=== PATIENT | male | born 1955 | race Caucasian/White ===

== ENCOUNTER 2018-06-26 04:14 | Inpatient (IN) | payer MEDICARE, OTHER ==
[2018-06-26] MEDS ORDERED: methylPREDNISolone Sod Succ/PF 125 MG/2 ML VIAL ONE (04:20)
[2018-06-26 04:42] LABS: #Basophils 0.2 thou/uL (0.0-0.2); #Eosinphils 0.8 thou/uL (0.0-0.7); #Lymphocytes 1.5 thou/uL (1.20-3.40); #Monocytes 1.3 thou/uL (0.11-0.59); #Neutrophils 9.4 thou/uL (1.40-6.50); %Basophils 1.2 % (0.0-1.0); %Eosinophils 6.2 % (0.0-10.0); %Lymphocytes 11.5 % (21.0-51.0); %Monocytes 9.6 % (0.0-10.0); %Neutrophils 71.5 % (42.0-75.0); Hemoglobin 14.3 g/dL (14.0-18.0); Mean Corpuscular HGB CONC 33.3 g/dL (32.0-36.0); Mean Corpuscular Hemoglobin 27.8 pg (27.0-31.0); Mean Corpuscular Volume 83.3 fL (78.0-98.0); Mean Platelet Volume 6.8 fL (7.4-10.4); Platelet Count 335 thou/uL (130-400); RBC Distribution Width 13.1 % (11.5-14.5); Red Blood Cell (RBC) Count 5.13 mill/uL (4.70-6.10); White Blood Cell (WBC) Count 13.2 thou/uL (4.8-10.8)
[2018-06-26 05:00] LABS: ALT (SGPT) 24 U/L (8-55); AST (SGOT) 26 U/L (5-34); Albumin 3.9 g/dL (3.4-4.8); Alkaline Phosphatase 107 U/L (40-150); Anion Gap 13 mmol/L (10-20); BUN (Urea Nitrogen) 14 mg/dL (8.4-25.7); Bilirubin, Total 0.3 mg/dL (0.2-1.2); Calc. Creatinine Clearance 0 mL/min (70-130); Calcium 9.2 mg/dL (7.8-10.44); Carbon Dioxide 27 mmol/L (23-31); Chloride 103 mmol/L (98-107); Estimated GFR-MDRD Greater than 90; Globulin 3.7 g/dL (2.4-3.5); Glucose 109 mg/dL (80-115); Potassium 3.8 mmol/L (3.5-5.1); Protein, Total 7.6 g/dL (5.8-8.1); Sodium 139 mmol/L (136-145)
[2018-06-26] MEDS ORDERED: cefTRIAXone\\ROCEPHIN 1 GM VIAL ONE (05:10)
--- NOTE | 2018-06-26 07:42 | RAD ---
PORTABLE CHEST: Date: 06/26/18 An AP portable film at 0401 hours is compared with the 03/22/07 study. FINDINGS: The heart is normal in size. There is no congestive change, pleural effusion, or lobar consolidation. Some of the basilar lung markings are minimally prominent, but this may just be atelectasis. Mediast inum unremarkable. IMPRESSION: No acute thoracic findings. POS: HOME
--- NOTE | 2018-06-26 08:44 | CT ---
PRELIMINARY REPORT/[facility]/EMERGENTY AFTER-HOURS PROCEDURE CT Angiography Chest With Contrast EXAM DATE/TIME: 06/26/2018 5:19 AM CLINICAL HISTORY: 62 years old, male; Abnormal findings; Abnormal diagnostic tests; Elevated d-dimer; Patient HX: SHORT NESS OF BREATH TECHNIQUE: Axial computed tomographic angiography images of the chest with intravenous contrast using CT angiogr aphy protocol. All CT scans at this facility use at least one of these dose optimization techniques: automated expos ure control; mA and/or kV adjustment per patient size (includes targeted exams where dose is matched to clinical indication); or iterative reconstruction. MIP reconstructed images were created and reviewed. COMPARISON: No relevant prior studies available. FINDINGS: Limitations: There is respiratory motion artifact. Pulmonary arteries: There is no evidence of peripheral filling defects within the pulmonary arterial circulation to suggest pulmonary embolism. Aorta: Normal. No aortic aneurysm. No aortic dissection. Lungs: There is nonspecific atelectasis/consolidation of the medial LEFT lower lobe. Pleural space: Normal. No pneumothorax. No pleural effusion. Heart: Normal. No cardiomegaly. No pericardial effusion. Lymph nodes: There are innumerable mildly prominent mediastinal lymph nodes within the RIGHT and LEFT paratracheal stations and subcarinal station, majority of which are subcentimeter however there is a 1.2 cm RIGHT paratracheal lymph node (series 2, image 38). Bones/joints: Unremarkable. No acute fracture. Soft tissues: Unremarkable. IMPRESSION: 1. There is no CT evidence of acute pulmonary embolism. 2. Nonspecific consolidation in the medial aspect of the LEFT lower lobe; correlate for pneumonia. 3. Nonspecific mediastinal lymphadenopathy, probably but not definitely reactive. Thank you for allowing us to participate in the care of your patient. Dictated and Authenticated by: Ananda Guillen MD 06/26/2018 6:40 AM Central Time ([place] & [place]) FINAL REPORT CT ANGIO CHEST: 06/26/2018 HISTORY/TECHNIQUE: A spiral CT of the chest was done for difficulty breathing. Axial slices were acquired after a bolus of IV contrast, and then oblique coronal reformations were done through the pulmonary arteries. FINDINGS: There are no filling defects in the pulmonary arteries to suggest emboli. Very small peripheral embo li would be missed on this study. The aorta shows no aneurysm or dissection. There is no pericardia l effusion. There are some small nodes scattered throughout the mediastinum. All are under 1.5 cm i n size, the largest being about 1.2 cm. These are more likely reactive nodes than not. There is no major consolidation in the lungs; however, there is a very small infiltrate in the medial left lower lobe, as well as some dependent atelectasis. This could be an early consolidation of pne umonia or could just be more atelectasis. There is a small similar peripheral area in the anterior r ight middle lobe. There is no way to tell if this is a chronic finding or acute. Scans into the upper abdomen were significant, showing a 4.4 cm left adrenal mass, which partially en hances with contrast and is mixed density. Its margins are quite smooth. Looking back at a [facility] 2006 CT, I see the mass was there, in retrospect, and measured about 3.4 cm. Thus, it has grown by about 1 cm over a 10+ year period. This implies it is most likely benign, but it would be prudent t o follow it up with a dedicated adrenal scan and consideration if anything further need be done. The right adrenal gland appears normal. IMPRESSION: 1. No evidence of pulmonary embolism. 2. Basilar atelectasis and some more focal infiltration in the medial left lower lobe; pneumonia sravan anthony atelectasis. The area is quite small and could even be chronic. 3. A 4.4 cm left adrenal mass, mixed density. This was present in 2006 and has grown about 1 cm in the interval. See discussion above and consider followup. Report in agreement with preliminary reading by [facility], except there was not mention of the adrenal les ion. A temporary report mentioning it was taken to the ER at approximately 0655 on 06/26/2018. CODE CR POS: HOME
[2018-06-26] MEDS ORDERED: Albuterol Sulfate 2.5 mg/3 ml Neb NEB PRN (10:33)
[2018-06-26] MEDS ORDERED: traMADol HCl 50 MG TAB PO PRN (11:36)
[2018-06-26] MEDS ORDERED: tiZANidine HCl 4 MG TAB PO PRN (11:36)
[2018-06-26] MEDS: methylPREDNISolone Sod Succ/PF 125 MG/2 ML VIAL IVP SCH ×3 (11:58→23:54)
[2018-06-26] MEDS: traMADol HCl 50 MG TAB PO PRN (12:40)
[2018-06-26] MEDS: Gabapentin 300 MG CAP PO SCH ×2 (15:02→20:48)
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
[2018-06-26] MEDS: Enoxaparin Sodium 40 MG/0.4 ML SYRINGE SC SCH (20:47)
[2018-06-26] MEDS: Famotidine 20 MG TAB PO SCH (20:48)
[2018-06-26] MEDS: Pregabalin 50 MG CAP PO SCH (20:48)
[2018-06-26] MEDS: Atorvastatin Calcium 10 MG TAB PO SCH (20:49)
[2018-06-27 02:29] VITALS: BMI 28.8
[2018-06-27] MEDS: cefTRIAXone\\ROCEPHIN 1 GM in Sodium Chloride 0.9% 100 ML IVPB SCH (04:29)
[2018-06-27 04:34] LABS: Anion Gap 13 mmol/L (10-20)
[2018-06-27] MEDS: methylPREDNISolone Sod Succ/PF 125 MG/2 ML VIAL IVP SCH ×3 (05:00→17:41)
[2018-06-27 05:13] LABS: ALT (SGPT) 21 U/L (8-55); AST (SGOT) 18 U/L (5-34); Albumin 3.6 g/dL (3.4-4.8); Alkaline Phosphatase 87 U/L (40-150); BUN (Urea Nitrogen) 18 mg/dL (8.4-25.7); Bilirubin, Total Less than 0.2 mg/dL (0.2-1.2); Calc. Creatinine Clearance 115 mL/min (70-130); Calcium 9.3 mg/dL (7.8-10.44); Carbon Dioxide 25 mmol/L (23-31); Chloride 103 mmol/L (98-107); Estimated GFR-MDRD 89; Globulin 3.5 g/dL (2.4-3.5); Glucose 191 mg/dL (80-115); Potassium 3.7 mmol/L (3.5-5.1); Protein, Total 7.1 g/dL (5.8-8.1); Sodium 138 mmol/L (136-145)
[2018-06-27 05:20] LABS: Band 14 % (5-11); Hemoglobin 13.5 g/dL (14.0-18.0); Lymphocytes 6 % (21-51); MDiff Complete? YES; Mean Corpuscular HGB CONC 34.5 g/dL (32.0-36.0); Mean Corpuscular Hemoglobin 28.7 pg (27.0-31.0); Mean Corpuscular Volume 83.3 fL (78.0-98.0); Mean Platelet Volume 6.5 fL (7.4-10.4); Monocytes 3 % (0-10); Neutrophil 77 % (42-75); PLT Morphology Comment Appears Adequate; Platelet Count 304 thou/uL (130-400); RBC Morphology Normal; Red Blood Cell (RBC) Count 4.71 mill/uL (4.70-6.10); Small Platelets SLIGHT; Toxic Granulation SLIGHT; White Blood Cell (WBC) Count 21.9 thou/uL (4.8-10.8)
[2018-06-27] MEDS: Gabapentin 300 MG CAP PO SCH ×3 (08:47→21:10)
[2018-06-27] MEDS: Citalopram 20 MG TAB PO SCH (08:47)
[2018-06-27] MEDS: Pregabalin 50 MG CAP PO SCH ×2 (08:48→21:10)
[2018-06-27] MEDS: Lisinopril 5 MG TAB PO SCH (08:49)
[2018-06-27] MEDS: Famotidine 20 MG TAB PO SCH ×2 (08:49→21:09)
[2018-06-27] MEDS: traMADol HCl 50 MG TAB PO PRN (17:48)
[2018-06-27] MEDS: Atorvastatin Calcium 10 MG TAB PO SCH (21:12)
[2018-06-27] MEDS: Enoxaparin Sodium 40 MG/0.4 ML SYRINGE SC SCH (21:12)
[2018-06-28] MEDS: methylPREDNISolone Sod Succ/PF 125 MG/2 ML VIAL IVP SCH ×2 (00:46→05:35)
[2018-06-28 04:23] VITALS: TEMP 97.8
[2018-06-28 05:32] LABS: #Basophils 0.1 thou/uL (0.0-0.2); #Lymphocytes 1.1 thou/uL (1.20-3.40); #Monocytes 0.9 thou/uL (0.11-0.59); #Neutrophils 19.4 thou/uL (1.40-6.50); %Basophils 0.3 % (0.0-1.0); %Lymphocytes 5.3 % (21.0-51.0); %Monocytes 4.1 % (0.0-10.0); %Neutrophils 90.4 % (42.0-75.0); Mean Corpuscular HGB CONC 34.2 g/dL (32.0-36.0); Mean Corpuscular Hemoglobin 28.6 pg (27.0-31.0); Mean Corpuscular Volume 83.8 fL (78.0-98.0); Mean Platelet Volume 7.1 fL (7.4-10.4); Platelet Count 354 thou/uL (130-400); RBC Distribution Width 13.1 % (11.5-14.5); Red Blood Cell (RBC) Count 4.53 mill/uL (4.70-6.10); White Blood Cell (WBC) Count 21.5 thou/uL (4.8-10.8)
[2018-06-28] MEDS: traMADol HCl 50 MG TAB PO PRN (05:32)
[2018-06-28] MEDS: cefTRIAXone\\ROCEPHIN 1 GM in Sodium Chloride 0.9% 100 ML IVPB SCH (05:35)
[2018-06-28 05:40] LABS: Anion Gap 14 mmol/L (10-20); BUN (Urea Nitrogen) 25 mg/dL (8.4-25.7); Calc. Creatinine Clearance 124 mL/min (70-130); Calcium 8.9 mg/dL (7.8-10.44); Carbon Dioxide 26 mmol/L (23-31); Chloride 102 mmol/L (98-107); Estimated GFR-MDRD Greater than 90; Glucose 120 mg/dL (80-115); Potassium 3.6 mmol/L (3.5-5.1); Sodium 138 mmol/L (136-145)
--- NOTE | 2018-06-28 07:30 | RAD ---
CHEST 2 VIEWS: Date: 06/28/18 Comparison made with the 06/26/18 study. The cardiac size is the same. The vessels are not congested. There are no pleural effusions. As befor e, there is a little more coarsening to the basilar lung markings. There is some increased density be hind the heart on the lateral view, indicating some basilar infiltration. Overall, the appearance of the chest is no worse than the prior exam. If anything, the right base may be slightly clearer. IMPRESSION: Similar to 06/26/18 study. Perhaps minimal clearing in the lung base, particularly on the right. POS: HOME
[2018-06-28] MEDS: Gabapentin 300 MG CAP PO SCH (09:11)
[2018-06-28] MEDS: Famotidine 20 MG TAB PO SCH (09:11)
[2018-06-28] MEDS: Citalopram 20 MG TAB PO SCH (09:11)
[2018-06-28] MEDS: Lisinopril 5 MG TAB PO SCH (09:11)
[2018-06-28] MEDS: Pregabalin 50 MG CAP PO SCH (09:12)
[2018-06-28 09:14] VITALS: BP 123/63
--- NOTE | 2018-06-29 05:39 | DIS ---
DATE OF ADMISSION: 06/26/2018 DATE OF DISCHARGE: 06/28/2018 ADMISSION DIAGNOSES: Left lower lobe community-acquired pneumonia and chronic obstructive pulmonary disease exacerbation. SECONDARY DIAGNOSES: Hypertension, dyslipidemia, neuropathy, history of traumatic brain injury, history of left [id number] amputation with gait instability, anxiety/depression, and left adrenal mass. PROCEDURES: 06/26/2018, chest x-ray shows no acute thoracic findings. 2017, chest CTA and shows no evidence of pulmonary embolism, basilar atelectasis and some more focal infiltration in the medial left lower lobe, pneumonia versus atelectasis. The area is quite swollen and could even be chronic. A 4.4 cm left adrenal mass mixed density. This was present in 2007 and has grown about 1 cm in interval. 06/28/2018, chest x-ray shows similar to 06/26/2018 study, perhaps minimal clearing in the lung bases, particularly on the right. HOSPITAL COURSE: A 62-year-old male, chronic smoker, who presented to the [facility] Emergency Department with worsening upper respiratory symptoms after failing outpatient therapy with p.o. azithromycin; notably having tachypnea and hypoxia. Repeat lab work revealed leukocytosis with an elevated D-dimer. Thus , a CTA of the chest was performed, which effectively ruled out pulmonary emboli. Due to his failed improvement from an outpatient perspective and respiratory compromise, he was admitted and started on empiric therapy with IV Rocephin and Levaquin along with scheduled nebs and IV Solu-Medrol. He was provided supplemental oxygen, which was effectively weaned back to room air. The patient's labs were trended and he did have a consistent leukocytosis, which was likely worsened from the IV Solu- Medrol. He clinically improved back to his respiratory baseline status; and as noted, he is back to room air. He is ambulatory with the assistance of his rolling walker without becoming tachypneic or dyspneic. He is amenable to discharge to his home setting to complete a course of p.o. antibiotics and steroids. He has been counseled on smoking cessation. His current rolling walker is partially broken and thus a written prescription was done for him to obtain a new rolling walker. As far as the left adrenal mass found incidentally, this has remained largely unchanged over the last 10 years, but as discussed with the patient, we will pursue a dedicated adrenal protocol imaging study as an outpatient. DISPOSITION: The patient will discharge home and may follow up with myself in the clinic next week. DISCHARGE MEDICATIONS: Include atorvastatin 10 mg p.o. at bedtime, Celexa 60 mg p.o. daily, gabapentin 600 mg p.o. t.i.d., Levaquin 500 mg p.o. daily x7 days, lisinopril 5 mg p.o. daily, prednisone 20 mg 2 tabs x3 days followed by 1 tab x3 days, Lyrica 100 mg p.o. b.i.d., tizanidine 4 mg p.o. t.i.d. p.r.n., and tramadol 50-100 mg p.o. t.i.d. p.r.n. Job ID: [id number] [facility]
== END 2018-06-28 10:45 | disposition home or self-care (01) | DRG 190 ==
LOC: BURERS 04:14 → BURMED 07:00
PROVIDERS: ADMIT Family Medicine; ATTEND Family Medicine
DX: J44.1 Chronic obstructive pulmonary disease with (acute) exacerbation (principal); J18.9 Pneumonia, unspecified organism; J44.0 Chronic obstructive pulmonary disease with (acute) lower respiratory infection; F32.9 Major depressive disorder, single episode, unspecified; E78.5 Hyperlipidemia, unspecified; I10 Essential (primary) hypertension; G62.9 Polyneuropathy, unspecified; F41.9 Anxiety disorder, unspecified; F17.200 Nicotine dependence, unspecified, uncomplicated; R09.02 Hypoxemia; E66.3 Overweight; Z68.28 Body mass index [BMI] 28.0-28.9, adult; R26.9 Unspecified abnormalities of gait and mobility; I25.10 Atherosclerotic heart disease of native coronary artery without angina pectoris; E27.9 Disorder of adrenal gland, unspecified; Z89.612 Acquired absence of left leg above knee; Z79.82 Long term (current) use of aspirin; Z88.5 Allergy status to narcotic agent; Z90.89 Acquired absence of other organs; Z98.890 Other specified postprocedural states; Z98.49 Cataract extraction status, unspecified eye; Z87.820 Personal history of traumatic brain injury; Z89.411 Acquired absence of right great toe; Z79.899 Other long term (current) drug therapy
CPT/HCPCS: 36415; 71045; 71046; 71275; 80048; 80053; 83605; 83880; 84484; 85025; 85379; 87040; 87804; 93005; 94640; 94644; 94760; 96365; 96375; J0696; J1650; J1956; J2930; J7050; J7620

== ENCOUNTER 2021-01-28 14:24 | Outpatient (CLI) | payer MEDICARE | END 2021-01-28 14:25 | disposition home or self-care (01) | LOC: BURRAD 14:24 | PROVIDERS: ATTEND Family Medicine | DX: M25.511 Pain in right shoulder (principal) ==

== ENCOUNTER 2025-06-13 21:38 | Emergency (ER) | payer MEDICARE, OTHER ==
[2025-06-13] MEDS ORDERED: Lidocaine 1% PF 5 ML VIAL ONE (22:03)
== END 2025-06-13 22:52 | disposition home or self-care (01) ==
LOC: BURERS 21:38
DX: S61.256A Open bite of right little finger without damage to nail, initial encounter (principal); S61.216A Laceration without foreign body of right little finger without damage to nail, initial encounter; J44.9 Chronic obstructive pulmonary disease, unspecified; I10 Essential (primary) hypertension; W55.81XA Bitten by other mammals, initial encounter; Z87.891 Personal history of nicotine dependence
CPT/HCPCS: 12002; 99283